=== PATIENT | male | born 1955 | race Caucasian/White ===

== ENCOUNTER 2017-09-27 11:41 | Emergency (ER) | payer MEDICAID ==
[~2017-09-27] VITALS: Ht 182.9 cm; Wt 93.0 kg
[~2017-09-27 11:41] MED LIST: CLIN-80 PO; CYCL-394 PO; DIAZ-351 PO; IBUP-1051 PO
[2017-09-27 11:53] VITALS: BP 142/69
[2017-09-27] MEDS ORDERED: ketorolac trometh inj. 60 MG/2 ML VIAL IM ONE (12:35)
== END 2017-09-27 14:09 | disposition home or self-care (01) ==
LOC: ER 11:42
DX: S39.012A Strain of muscle, fascia and tendon of lower back, initial encounter (principal); M51.36 Other intervertebral disc degeneration, lumbar region; M54.32 Sciatica, left side; G89.29 Other chronic pain; Z98.890 Other specified postprocedural states; Z88.5 Allergy status to narcotic agent; W18.2XXA Fall in (into) shower or empty bathtub, initial encounter; Y93.E1 Activity, personal bathing and showering; Y92.89 Other specified places as the place of occurrence of the external cause; Y99.8 Other external cause status
CPT/HCPCS: 72100; 73502; 96372; 99284; J1885

== ENCOUNTER 2021-12-02 15:31 | Emergency (ER) | payer MEDICAID, OTHER ==
[~2021-12-02] VITALS: Ht 180.3 cm; Wt 95.5 kg
[~2021-12-02 15:31] MED LIST changes: -CLIN-80 PO; +CLIN-97 PO
[2021-12-02 15:39] VITALS: BP 131/86
[2021-12-02] MEDS ORDERED: HYDROcodone/acetaminophen 10/325mg tab PO ONE (15:55)
[2021-12-02] MEDS ORDERED: tizanidine 4mg tablet PO ONE (15:55)
== END 2021-12-02 16:42 | disposition home or self-care (01) ==
LOC: ER 15:32
DX: M54.50 Low back pain, unspecified (principal); G89.29 Other chronic pain; Z72.89 Other problems related to lifestyle; Z98.890 Other specified postprocedural states; Z79.2 Long term (current) use of antibiotics; Z79.899 Other long term (current) drug therapy
CPT/HCPCS: 99283

== ENCOUNTER 2024-11-25 14:17 | Emergency (ER) | payer BC, MEDICAID ==
[~2024-11-25] VITALS: Ht 182.9 cm; Wt 85.5 kg
[2024-11-25 14:45] LABS: BILIRUBIN,URINE NEGATIVE (Neg); CLARITY,URINE CLEAR (Clear); COLOR,URINE YELLOW (Yellow); GLUCOSE, URINE NEGATIVE (Neg); KETONES,URINE NEGATIVE (Neg); LEUKOCYTE ESTERASE ,URINE NEGATIVE (Neg); NITRITES, URINE NEGATIVE (Neg); OCCULT BLOOD,URINE NEGATIVE (Neg); PROTEIN,URINE NEGATIVE (Neg); UROBILINOGEN,URINE 0.2 E.U/dL (0.2-1.0)
[2024-11-25 14:54] LABS: UA COLLECTION TYPE NON-SPECIFIED
[2024-11-25 15:08] VITALS: TEMP 99
[2024-11-25] MEDS ORDERED: HYDR-3973 PO (17:15)
[2024-11-25 17:34] VITALS: BP 121/76; PULSE 67; O2SAT 98
[2024-11-25 17:40] VITALS: RESP 16
[2024-11-25] MEDS: HYDROcodone/acetaminophen 10/325mg tab PO ONE (17:40)
[2024-11-26] MEDS ORDERED: HYDR-3973 PO (15:37)
== END 2024-11-25 17:43 | disposition home or self-care (01) ==
LOC: ER 14:19
DX: R10.32 Left lower quadrant pain (principal)
CPT/HCPCS: 81003; 99283